=== PATIENT | male | born 1995 | race Caucasian/White ===

== ENCOUNTER → 2018-11-04 | Day surgery (SDC) | payer OTHER | LOC: JRADIR 11:58 ==

== ENCOUNTER 2018-12-23 04:47 | Emergency (ER) | payer OTHER ==
[2018-12-23 05:17] VITALS: BMI 20.1
--- NOTE | 2018-12-23 05:39 | PDOC ---
History of Present Illness - General Chief Complaint: Chest Pain Stated Complaint: CHEST AND LEFT SIDE RIB PAIN Time Seen by Provider: 12/23/18 05:39 History Source: Patient Exam Limitations: No Limitations - History of Present Illness Initial Comments: 23 year old male with PMH left sided thyroid cyst presented to ED for chest pain x2 days. Pt reported his pain was originally located to his epigastrium, but progressed up his chest and to his left arm, constant, worse with inspiration, lying flat, better with sitting upright. Pt reported sore throat/ dry cough x1 week ago, sore throat resolved, dry cough still present but improved. He denied fever, sputum production, vomiting, lightheadedness, syncope , numbness, tingling. Past History - Past Medical History Allergies/Adverse Reactions: Allergies Allergy/AdvReac Type Severity Reaction Status Date / Time No Known Allergies Allergy Verified 12/23/18 04:58 Home Medications: Ambulatory Orders NK [No Known Home Medication] 12/23/18 - Psycho Social/Smoking Cessation Hx Smoking History: Never smoked Have you smoked in the past 12 months: No Information on smoking cessation initiated: No Hx Alcohol Use: No Drug/Substance Use Hx: No Review of Systems - Review of Systems Able to Perform ROS?: Yes Comments:: ROS General: denied fever, chills, generalized weakness. HEENT: admitted to resolved sore throat. denied rhinorrhea, ear pain. Cardiovascular: admitted to chest pain. denied palpitations, syncope, diaphoresis. Respiratory: admitted to cough. denied shortness of breath, sputum production, hemoptysis. Gastrointestinal: admitted to abdominal pain. denied nausea, vomiting, diarrhea , constipation, blood in stool. Genitourinary: denied dysuria, increased urinary frequency, hematuria, urinary incontinence, flank pain. Back: denied back pain. Musculoskeletal: denied joint pain, muscle pain, joint swelling. Neurological: denied headache, dizziness, numbness, tingling, weakness. Integumentary: denied rash, laceration, abrasion. Hematologic/Lymphatic: denied bruising or bleeding. PE Constitutional: Well-nourished, Well-developed, appearing stated age. HEENT: head is normocephalic, atraumatic. EOMI. PERRLA. Neck: supple. Full ROM. Cardiovascular: regular heart rhythm. no murmurs. no pericardial friction rub. Respiratory: clear to auscultation bilaterally. no crackles, rhonchi or wheezing. no stridor. Gastrointestinal: soft, nontender. normal bowel sounds. no rebound, guarding, masses. Extremities: peripheral pulses intact. no lower extremity edema. no calf tenderness bilaterally. Neurological: CN 2-12 grossly intact. moves all four extremities. Psych: awake, alert, oriented x3. follows commands. answers questions appropriately. *Physical Exam - Vital Signs Last Vital Signs Temp Pulse Resp BP Pulse Ox 98.0 F 77 18 150/88 99 12/23/18 05:06 12/23/18 05:15 12/23/18 05:15 12/23/18 05:15 12/23/18 05:15 ED Treatment Course - LABORATORY CBC & Chemistry Diagram: 12/23/18 06:05 12/23/18 06:05 Medical Decision Making - Medical Decision Making 23 year old male with no PMH presented to ED for epigastric pain radiating to left chest/arm. Initial Vital Signs Temp Pulse Resp BP Pulse Ox 98.0 F 80 20 136/82 98 12/23/18 05:06 12/23/18 05:06 12/23/18 05:06 12/23/18 05:06 12/23/18 05:06 Afebrile. No tachycardia. No tachypnea. Mild hypertension. No hypoxia on room air. Labs ordered: CBC, CMP, lipase, troponin, mag, UA/UC, coags, d-dimer, TSH -Repeat trop for 0900 Imaging ordered: CXR Medications ordered: pepcid, maalox, toradol, normal saline bolus 1000 cc once EKG performed at 0507: rate 88, regular rhythm, normal acis, normal intervals, no acute ST changes. PERC Rule for Pulmonary Embolism from [email or web address] on 12/23/2018 RESULT SUMMARY: -0 criteria -No need for further workup, as <2% chance of PE. If no criteria are positive and clinicians pre-test probability is <15%, PERC Rule criteria are satisfied. INPUTS: Age ?50 > 0 = No HR ?100 > 0 = No O? sat on room air > 0 = No Unilateral leg swelling > 0 = No Hemoptysis > 0 = No Recent surgery or trauma > 0 = No Prior PE or DVT > 0 = No Hormone use > 0 = No Can PERC pt out, but pt's chest pain is very pleuritic, will send d-dimer. 12/23/18 06:22 CXR my view: sharp costophrenic angles. no cardiomegaly. no infiltrate. no large pneumothorax. -Pending official report. 12/23/18 06:42 CBC WBC 6.7 K/mm3 (4.0-10.0) 12/23/18 06:05 RBC 4.61 M/mm3 (4.00-5.60) 12/23/18 06:05 Hgb 14.2 GM/dL (11.7-16.9) 12/23/18 06:05 Hct 41.3 % (35.4-49) 12/23/18 06:05 MCV 89.6 fl (80-96) 12/23/18 06:05 MCH 30.8 pg (25.7-33.7) 12/23/18 06:05 MCHC 34.4 g/dl (32.0-35.9) 12/23/18 06:05 RDW 13.5 % (11.9-15.9) 12/23/18 06:05 Plt Count 223 K/MM3 (134-434) 12/23/18 06:05 MPV 9.2 fl (7.5-11.1) 12/23/18 06:05 Absolute Neuts (auto) 3.3 K/mm3 (1.5-8.0) 12/23/18 06:05 Neutrophils % 48.9 % (42.8-82.8) 12/23/18 06:05 Lymphocytes % 39.0 % (8-40) 12/23/18 06:05 Monocytes % 10.5 % (3.8-10.2) H 12/23/18 06:05 Eosinophils % 1.3 % (0-4.5) 12/23/18 06:05 Basophils % 0.3 % (0-2.0) 12/23/18 06:05 Nucleated RBC % 0 % (0-0) 12/23/18 06:05 No leukocytosis. No anemia. CMP Sodium 139 mmol/L (136-145) 12/23/18 06:05 Potassium 4.0 mmol/L (3.5-5.1) 12/23/18 06:05 Chloride 104 mmol/L (98-107) 12/23/18 06:05 Carbon Dioxide 28 mmol/L (21-32) 12/23/18 06:05 Anion Gap 8 MMOL/L (8-16) 12/23/18 06:05 BUN 11.5 mg/dL (7-18) 12/23/18 06:05 Creatinine 0.9 mg/dL (0.55-1.3) 12/23/18 06:05 Est GFR (CKD-EPI)AfAm 140.02 12/23/18 06:05 Est GFR (CKD-EPI)NonAf 120.81 12/23/18 06:05 Random Glucose 101 mg/dL (74-106) 12/23/18 06:05 Calcium 8.9 mg/dL (8.5-10.1) 12/23/18 06:05 Magnesium 2.2 mg/dL (1.8-2.4) 12/23/18 06:05 Total Bilirubin 0.3 mg/dL (0.2-1) 12/23/18 06:05 AST 14 U/L (15-37) L 12/23/18 06:05 ALT 28 U/L (13-61) 12/23/18 06:05 Alkaline Phosphatase 88 U/L (45-117) 12/23/18 06:05 Troponin I < 0.02 ng/ml (0.00-0.05) 12/23/18 09:10 Total Protein 7.2 g/dl (6.4-8.2) 12/23/18 06:05 Albumin 3.8 g/dl (3.4-5.0) 12/23/18 06:05 Lipase 79 U/L (73-393) 12/23/18 06:05 TSH 1.45 uIU/ml (0.358-3.74) 12/23/18 06:05 Pt signed out to day resident. Pending d-dimer result. Discharge - Discharge Information Problems reviewed: Yes Clinical Impression/Diagnosis: Chest pain Condition: Good Disposition: HOME - Follow up/Referral Referrals: Konrad Robles MD [Primary Care Provider] - - Patient Discharge Instructions Patient Printed Discharge Instructions: DI for Atypical Chest Pain Additional Instructions: You were seen in the emergency department for your chest pain. Please follow up with your primary medical doctor within 1 week after discharge for follow up care and management. Please follow up with your primary to have your thyroid re- evaluated. You were given a copy of your chest xray. Please return to the emergency department if you have worsening pain or new concerning symptoms. Thank you. - Post Discharge Activity
[2018-12-23] MEDS ORDERED: KETOROLAC TROMETHAMINE 30 MG/1 ML VIAL IVPUSH ONE (05:51)
[2018-12-23] MEDS ORDERED: SODIUM CHLORIDE 1,000 ML IV STA (05:51)
[2018-12-23] MEDS ORDERED: MAG HYDROX/AL HYDROX/SIMETH 30 ML UNIT-DOSE CUP PO ONE (05:51)
[2018-12-23] MEDS ORDERED: FAMOTIDINE 20 MG/50 ML IVPB 20 MG/50 ML MG IVPB ONE ×2 (05:51→06:21)
--- NOTE | 2018-12-23 05:52 | PDOC ---
Attending Attestation - Resident Resident Name: Paula Hollins - ED Attending Attestation I have performed the following: I have examined & evaluated the patient, The case was reviewed & discussed with the resident, I agree w/resident's findings & plan - HPI HPI: 12/23/18 06:54 see resident hpi - Physicial Exam PE: 12/23/18 06:54 agree with resident exam - Medical Decision Making 12/23/18 06:54 23-year-old male with pleuritic left-sided chest pain EKG shows a normal sinus rhythm with possible pericarditis pattern Plan for labs including troponin, d-dimer and ESR Chest x-ray shows no acute infiltrate Toradol for pain We will sign out to [facility] for final disposition 12/23/18 06:55
[2018-12-23] MEDS ORDERED: MAG HYDROX/AL HYDROX/SIMETH 30 ML UNIT-DOSE CUP ONE (06:21)
[2018-12-23] MEDS ORDERED: KETOROLAC TROMETHAMINE 30 MG/1 ML VIAL ONE (06:21)
[2018-12-23 06:36] LABS: BASO % 0.3 % (0-2.0); EOS % 1.3 % (0-4.5); HEMATOCRIT 41.3 % (35.4-49); HEMOGLOBIN 14.2 GM/dL (11.7-16.9); MCH 30.8 pg (25.7-33.7); MCHC 34.4 g/dl (32.0-35.9); MEAN CELL VOLUME 89.6 fl (80-96); MEAN PLT VOLUME 9.2 fl (7.5-11.1); MONO % 10.5 % (3.8-10.2); NEUT % 48.9 % (42.8-82.8); PLATELET COUNT 223 K/MM3 (134-434); RBC 4.61 M/mm3 (4.00-5.60); RDW 13.5 % (11.9-15.9); WHITE BLOOD COUNT 6.7 K/mm3 (4.0-10.0)
[2018-12-23 06:43] LABS: MAGNESIUM 2.2 mg/dL (1.8-2.4)
[2018-12-23 06:49] LABS: ALBUMIN 3.8 g/dl (3.4-5.0); ALK PHOS 88 U/L (45-117); ANION GAP 8 MMOL/L (8-16); BILIRUBIN,TOTAL 0.3 mg/dL (0.2-1); BLOOD UREA NITROGEN 11.5 mg/dL (7-18); CALCIUM 8.9 mg/dL (8.5-10.1); CHLORIDE 104 mmol/L (98-107); CO2 28 mmol/L (21-32); CREATININE 0.9 mg/dL (0.55-1.3); GLUCOSE,RANDOM 101 mg/dL (74-106); SGOT/AST 14 U/L (15-37); SGPT/ALT 28 U/L (13-61); SODIUM 139 mmol/L (136-145); TOT PROT 7.2 g/dl (6.4-8.2)
--- NOTE | 2018-12-23 07:16 | PDOC ---
*Physical Exam - Vital Signs Last Vital Signs Temp Pulse Resp BP Pulse Ox 98.0 F 77 18 150/88 99 12/23/18 05:06 12/23/18 05:15 12/23/18 05:15 12/23/18 05:15 12/23/18 05:15 - Physical Exam Comments: 12/23/18 10:20 Received sign out from Dr. Hollins ED Treatment Course - LABORATORY CBC & Chemistry Diagram: 12/23/18 06:05 12/23/18 06:05 - ADDITIONAL ORDERS Additional order review: Laboratory Results 12/23/18 12/23/18 06:05 06:05 Sodium 139 Potassium 4.0 Chloride 104 Carbon Dioxide 28 Anion Gap 8 BUN 11.5 Creatinine 0.9 Est GFR (CKD-EPI)AfAm 140.02 Est GFR (CKD-EPI)NonAf 120.81 Random Glucose 101 Calcium 8.9 Magnesium 2.2 Total Bilirubin 0.3 AST 14 L ALT 28 Alkaline Phosphatase 88 Troponin I < 0.02 Total Protein 7.2 Albumin 3.8 Lipase 79 12/23/18 06:05 RBC 4.61 MCV 89.6 MCHC 34.4 RDW 13.5 MPV 9.2 Neutrophils % 48.9 Lymphocytes % 39.0 Monocytes % 10.5 H Eosinophils % 1.3 Basophils % 0.3 - Medications Given in the ED: ED Medications Discontinued Medications Generic Name Dose Route Start Last Admin Trade Name Freq PRN Reason Stop Dose Admin Al Hydroxide/Mg Hydroxide 30 ml 12/23/18 05:51 12/23/18 06:43 Mylanta Oral Suspension - PO 12/23/18 05:52 30 ml ONCE ONE Administration Famotidine/Sodium Chloride 20 mg in 50 mls @ 100 mls/hr 12/23/18 05:51 06:44 Pepcid 20 Mg Premixed Ivpb - IVPB 12/23/18 06:20 100 mls/hr ONCE ONE Administration Sodium Chloride 1,000 mls @ 1,000 mls/hr 12/23/18 05:51 12/23/18 06:43 Normal Saline - IV 12/23/18 06:50 1,000 mls/hr ASDIR STA Administration Ketorolac Tromethamine 30 mg 12/23/18 05:51 12/23/18 06:44 Toradol Injection - IVPUSH 12/23/18 05:52 30 mg ONCE ONE Administration Discharge - Discharge Information Problems reviewed: Yes Clinical Impression/Diagnosis: Chest pain Disposition: HOME - Admission No - Follow up/Referral Referrals: Konrad Robles MD [Primary Care Provider] - - Patient Discharge Instructions Patient Printed Discharge Instructions: DI for Atypical Chest Pain Additional Instructions: You were seen in the emergency department for your chest pain. Please follow up with your primary medical doctor within 1 week after discharge for follow up care and management. Please follow up with your primary to have your thyroid re- evaluated. You were given a copy of your chest xray. Please return to the emergency department if you have worsening pain or new concerning symptoms. Thank you. - Post Discharge Activity
[2018-12-23 07:42] LABS: INR 1.08 (0.83-1.09); PROTHROMBIN TIME (PATIENT) 12.8 SEC (9.7-13.0)
[2018-12-23 08:13] LABS: ERYTHROCYTE SEDIMENTATION RATE 23 mm/hr (0-10)
[2018-12-23 09:36] LABS: PH,URINE 6.5 (5.0-8.0); URINE APPEARANCE CLEAR; URINE BILIRUBIN NEGATIVE (NEGATIVE); URINE COLOR YELLOW; URINE GLUCOSE (UA) NEGATIVE (NEGATIVE); URINE KETONE NEGATIVE (NEGATIVE); URINE LEUK ESTERASE NEGATIVE (NEGATIVE); URINE NITRITE NEGATIVE (NEGATIVE); URINE PROTEIN NEGATIVE (NEGATIVE); URINE UROBILINOGEN 0.2 mg/dL (0.2-1.0)
[2018-12-23 10:50] VITALS: BP 139/89; PULSE 77; TEMP 98.4
--- NOTE | 2018-12-23 12:04 | EKG ---
Test Reason : Blood Pressure : / mmHG Vent. Rate : 088 BPM Atrial Rate : 088 BPM P-R Int : 168 ms QRS Dur : 084 ms QT Int : 342 ms P-R-T Axes : 053 052 042 degrees QTc Int : 413 ms NORMAL SINUS RHYTHM NONSPECIFIC ST AND T WAVE ABNORMALITY ABNORMAL ECG NO PREVIOUS ECGS AVAILABLE Confirmed by EDMAR COLLADO MD ([id number]) on 12/23/2018 12:04:13 PM Referred By: Confirmed By:EDMAR COLLADO MD
--- NOTE | 2018-12-23 12:04 | EKG ---
Test Reason : Blood Pressure : / mmHG Vent. Rate : 070 BPM Atrial Rate : 070 BPM P-R Int : 174 ms QRS Dur : 088 ms QT Int : 366 ms P-R-T Axes : 044 045 031 degrees QTc Int : 395 ms NORMAL SINUS RHYTHM NORMAL ECG WHEN COMPARED WITH ECG OF 23-DEC-2018 05:07, NO SIGNIFICANT CHANGE WAS FOUND Confirmed by EDMAR COLLADO MD ([id number]) on 12/23/2018 12:04:11 PM Referred By: Confirmed By:EDMAR COLLADO MD
== END 2018-12-23 10:45 | disposition home or self-care (01) ==
LOC: JER 04:47
PROC: 3E033GC Introduction of Other Therapeutic Substance into Peripheral Vein, Percutaneous Approach (ICD-10-PCS; principal; 2018-12-23)
PROC: 3E0333Z Introduction of Anti-inflammatory into Peripheral Vein, Percutaneous Approach (ICD-10-PCS; 2018-12-23)
DX: R07.9 Chest pain, unspecified (principal)
CPT/HCPCS: 36415; 71046-TC-FY; 80053; 81003; 83690; 83735; 84443; 84484; 85025; 85379; 85610; 85651; 85730; 87086; 93005; 93010; 99285-25; J7030

== ENCOUNTER 2019-03-04 06:54 | Day surgery (SDC) | payer OTHER ==
[2019-03-03 11:19] VITALS: BMI 30.2
[2019-03-04] MEDS ORDERED: LIDOCAINE 1%-EPI 1:100,000 30 ML MDV IJ ONE (08:11)
[2019-03-04] MEDS ORDERED: ROCURONIUM BROMIDE 50 MG/5 ML SYRINGE ONE ×2 (09:11→14:22)
[2019-03-04] MEDS ORDERED: PROPOFOL 20 ML ONE ×2 (09:11→09:32)
[2019-03-04] MEDS ORDERED: fentaNYL CITRATE 250 MCG/5 ML VIAL ONE (09:11)
[2019-03-04] MEDS ORDERED: SUCCINYLCHOLINE CHLORIDE 200 MG/10 ML SYRINGE ONE (09:11)
[2019-03-04] MEDS ORDERED: MIDAZOLAM HCL 2 MG/2 ML SINGLE DOSE VIAL ONE ×2 (09:12→14:22)
[2019-03-04] MEDS ORDERED: ceFAZolin SODIUM 1 GM VIAL IVPB ONE ×2 (09:18→14:40)
[2019-03-04] MEDS ORDERED: ceFAZolin SODIUM 1 GM VIAL ONE ×2 (09:39)
[2019-03-04] MEDS ORDERED: oxyCODONE HCL 5 MG TABLET PO PRN ×2 (09:50→14:08)
[2019-03-04] MEDS ORDERED: ONDANSETRON 4 MG/2 ML VIAL IVPUSH PRN ×2 (09:50→17:13)
[2019-03-04] MEDS ORDERED: LACTATED RINGERS SOLUTION 1,000 ML IV SCH (10:00)
[2019-03-04] MEDS ORDERED: LIDOCAINE 1%/EPI 1:100000 (50 ML MULTI DOSE VIAL) INF ONE ×2 (10:03)
[2019-03-04] MEDS ORDERED: BUPIVACAINE HCL/PF 0.5% (5 MG/ML) 30 ML VIAL IJ ONE ×2 (10:06)
[2019-03-04] MEDS ORDERED: GELATIN, ABSORBABLE 12-7MM EACH SPONGE TP ONE (10:06)
[2019-03-04] MEDS ORDERED: THROMBIN (BOVINE) 5,000 UNIT VIAL TP ONE ×2 (10:36→14:45)
--- NOTE | 2019-03-04 11:40 | OP ---
Operative Note - Note: Operative Date: 03/04/19 Pre-Operative Diagnosis: left thyroid nodule Operation: Left thyroid lobectomy Post-Operative Diagnosis: Same as Pre-op Surgeon: Curtis Parker Rag Sorter: Radha Quevedo Anesthesiologist/NAPRAPATH: Dionne Pino Anesthesia: General Specimens Removed: left thyroid nodule Estimated Blood Loss (mls): 25 Fluid Volume Replaced (mls): 900 Operative Report Dictated: Yes
--- NOTE | 2019-03-04 11:41 | SURG ---
Surgery Shipyard Painting Supervisor Note Shipyard Painting Supervisor: Radha Quevedo PA-C Date of Service: 03/04/19 Diagnosis: left thyroid nodule Procedure: Left thyroid lobectomy I was present for the entirety of the operative procedure. For further detail, please refer to operative report. Visit type - Case Type Case Type: Scheduled - Emergency Emergency Visit: No - New patient This patient is new to me today: Yes Date on this admission: 03/04/19
--- NOTE | 2019-03-04 13:31 | OP ---
DATE OF OPERATION: 03/04/2019 PROCEDURE: Left hemithyroidectomy. DESCRIPTION OF PROCEDURE: The patient was taken into the operating room, placed in a supine position, endotracheally intubated. Neck ultrasound was performed, showing a left thyroid mass with no adenopathy. The patient was then prepped and draped in the usual sterile fashion. Local anesthesia was administered and a 5-cm, horizontal incision was made in an anterior mid-neck skin crease. This was carried down through subcutaneous tissues and platysma. Subplatysmal flaps were raised superiorly and inferiorly and flap hooks were placed for exposure. The median raphe was incised and the left-sided strap muscles were elevated off the thyroid gland. The recurrent laryngeal nerve was identified, dissected, and preserved. The parathyroid glands were dissected off the thyroid gland and preserved. The superior pole was transected with the LigaSure. The posterior and inferior attachments were also transected. In this way, the left thyroid lobe was lifted up. It was then taken off the trachea with the Bovie. A pyramidal lobe was also identified and dissected free from surrounding tissues. The isthmus was transected with the LigaSure. In this way, the left thyroid lobe was removed and sent for pathology. It was checked for parathyroid tissues and none were found. Hemostasis was achieved with electrocautery, thrombin, and Gelfoam. The recurrent laryngeal nerve was tested with the nerve monitor and found to be intact at the conclusion of the case. Valsalva maneuver was performed and no bleeding was seen. The wound was then closed in three layers. Dermabond was placed. The patient was then awakened, extubated, and taken to recovery in stable condition. Dr. Bush, the attending surgeon, was present throughout the entire procedure. FRANCISCO BUSH M.D. [id number]
[2019-03-04] MEDS ORDERED: ACETAMINOPHEN 1000 MG/100 ML VIAL (NON FORMULARY) IVPB ONE ×2 (15:55→17:00)
--- NOTE | 2019-03-04 16:04 | OP ---
Operative Note - Note: Operative Date: 03/04/19 Pre-Operative Diagnosis: hematoma of the neck Operation: s/p evaucation of the hematoma Findings: 150 ml of clot and blood in the SQ tissue. Active bleeding artery. Surgeon: Curtis Parker [employer] Top Helper: Corina Salazar Anesthesiologist/SCARFER OPERATOR: Xochitl Liao Anesthesia: General Estimated Blood Loss (mls): 150 Fluid Volume Replaced (mls): 400 Operative Report Dictated: Yes
--- NOTE | 2019-03-04 16:05 | SURG ---
Surgery Building Services Coordinator Note Building Services Coordinator: Corina Salazar PA-C Date of Service: 03/04/19 Diagnosis: hematoma of the neck Procedure: s/p evaucation of the hematoma I was present for the entirety of the operative procedure. For further detail, please refer to operative report. Visit type - Case Type Case Type: Scheduled - Emergency Emergency Visit: No - New patient This patient is new to me today: Yes Date on this admission: 03/04/19
[2019-03-04] MEDS ORDERED: ACETAMINOPHEN INJECTION 100 ML IVPB ONE (16:52)
[2019-03-04] MEDS ORDERED: ONDANSETRON 4 MG/2 ML VIAL ONE (17:31)
[2019-03-04] MEDS: LACTATED RINGERS SOLUTION 1,000 ML IV SCH ×3 (17:57→20:46)
[2019-03-04] MEDS ORDERED: ACETAMINOPHEN 325 MG TABLET (FP) PO PRN (23:00)
[2019-03-05] MEDS: LACTATED RINGERS SOLUTION 1,000 ML IV SCH (06:08)
--- NOTE | 2019-03-05 12:06 | OP ---
DATE OF OPERATION: 03/04/2019 SURGICAL ATTENDING: Francisco Bush MD PREOPERATIVE DIAGNOSIS: Neck hematoma. POSTOPERATIVE DIAGNOSIS: Neck hematoma. ANESTHESIA: General endotracheal. PROCEDURE: Evacuation of neck hematoma. DESCRIPTION OF PROCEDURE: The patient was taken into the operating room, placed in a supine position, endotracheally intubated. The neck was then prepped and draped in usual sterile fashion. The previously made thyroidectomy incision was opened with a knife. Hematoma was noted in the subplatysmal plane and evacuated. All blood and clot was removed, and exploration revealed a 1-mm pulsatile artery that was bleeding in the left upper part of the wound. This was clamped and suture ligated. Other areas around the wound appeared to be slightly oozing and were controlled with bipolar electrocautery. Hemostasis was assured. Valsalva maneuvers were performed, and no bleeding was seen. Manual pressure was held for 5 minutes. Complete hemostasis was assured. Surgicel was placed throughout the wound. It was then closed in 2 layers. The patient was then extubated, awakened, and taken to Recovery in stable condition. Dr. Bush, the attending surgeon, was present throughout the entire procedure. FRANCISCO BUSH M.D. [id number]
[2019-03-05 13:56] VITALS: BP 129/65; PULSE 108; TEMP 98.1
--- NOTE | 2019-03-07 14:24 | PATH ---
Surgical Pathology Report Patient Name: TRISHA KAHN [facility]. Rec. #: [id number] /Age/Gender: 1995 (Age: 23) / M Account: [id number] Location: AMBULATORY SURG Taken: 03/04/2019 Received: 03/04/2019 Reported: 03/07/2019 Physicians: Curtis Parker M.D. 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 NO CARCINOMA IDENTIFIED. NO PARATHYROID GLAND IDENTIFIED. Comment: Also see prior Fine Needle Aspiration specimen [id number]. Electronically Signed Julián Fernandez M.D. Gross Description Received in formalin labeled "left thyroid lobe," is a 67 g, 6.0 x 4.8 x 3.6 cm unoriented thyroid lobe. The outer surface is marroquin-pink and smooth. Sectioning reveals a 4.8 cm in greatest dimension marroquin, solid, well-circumscribed nodule. The nodule abuts the outer capsule but does not appear to invade through it. The remaining thyroid parenchyma is red-brown and beefy. Facilities Flight Check Pilot sections are sequentially submitted in 10 cassettes. DL/03/04/2019 saudi/03/04/2019
== END 2019-03-05 16:32 | disposition home or self-care (01) ==
LOC: JASU-SURG 06:54 → JASUSAT 06:54 → J7W 17:48 → JASUSAT 03-05 16:32
PROVIDERS: ATTEND Surgery
PROC: 0KC30ZZ Extirpation of Matter from Left Neck Muscle, Open Approach (ICD-10-PCS; 2019-03-04)
PROC: 0GTG0ZZ Resection of Left Thyroid Gland Lobe, Open Approach (ICD-10-PCS; principal; 2019-03-04 09:00)
DX: E04.8 Other specified nontoxic goiter (principal); E89.820 Postprocedural hematoma of an endocrine system organ or structure following an endocrine system procedure; Y83.8 Other surgical procedures as the cause of abnormal reaction of the patient, or of later complication, without mention of misadventure at the time of the procedure; Y92.530 Ambulatory surgery center as the place of occurrence of the external cause
CPT/HCPCS: 88307-TC; 94760; J0131